=== PATIENT | male | born 1995 | race Caucasian/White ===

== ENCOUNTER 2017-06-02 01:19 | Emergency (ER) | payer OTHER ==
[~2017-06-02] VITALS: Ht 177.8 cm; Wt 79.9 kg
[2017-06-02 01:30] VITALS: TEMP 36.5; Ht 177.8 cm; Wt 79.9 kg
[2017-06-02] MEDS ORDERED: LORAZEPAM 1 MG TAB SL STA ×2 (01:50→01:53)
--- NOTE | 2017-06-02 01:55 | EMERGENCY ROOM VISIT NOTE ---
History Report prepared by Raphael: Claude Verma Under the Supervision of: Dr. Scottie Carrillo M.D. First contact with patient: 01:39 Chief Complaint: OTHER COMPLAINT Stated Complaint: SHAKING,FEELING OUT OF CONTROL,HYPERVENTILATING History of Present Illness The patient is a 22 year old male who presents to the Emergency Room with complaints of constant shaking and hyperventilating beginning a few hours ago. The patient states he takes Wellbutrin and Zoloft daily for an antidepressant. He reports this evening he smoked a joint of marijuana and felt loopy and shaky. The patient notes he cannot rest without shaking and hyperventilating. He states he has a long history of heavy marijuana use. He states he has been clean for the past 8 months or so. The patient reports marijuana has made him feel this way before, but he ignored it. He notes he felt fine when he first started his long history, but then it switched how it affected him. The patient states he ate dinner, but did not eat much food throughout the day either. He denies loss of consciousness, alcohol consumption, abdominal pain, and neck pain. The patient did not become incontinent of his stool or urine. He also did not show signs of biting his tongue. Source of History: patient Onset: few hours ago Position: other (global) Quality: other (shaking and hyperventilating) Timing: constant Modifying Factors (Worsening): rest Associated Symptoms: No LOC, No neck pain, No abdominal pain Note: Associated symptoms: jittery Denies: alcohol consumption Review of Systems All systems have been listed, reviewed, and are negative other than those previously mentioned. Please see Additional Medical History Sheet. Past Medical & Surgical Medical Problems: (1) Skin problem Family History Cancer Heart disease Social History Smoking Status: Current Some Day Smoker Smokeless Tobacco Use: No Alcohol Use: none Drug Use: marijuana Marital Status: single Housing Status: lives with roommate Occupation Status: [employer] Current/Historical Medications Scheduled Bupropion (Wellbutrin-Xl), 300 MG PO DAILY Sertraline (Zoloft), 150 MG PO HS Allergies Coded Allergies: No Known Allergies (Unverified , 06/02/17) Physical Exam Vital Signs Date Time Temp Pulse Resp B/P (MAP) Pulse Ox O2 Delivery O2 Flow Rate FiO2 06/02/17 01:30 36.5 85 18 152/84 100 Room Air Physical Exam GENERAL: Patient awake, alert, oriented x 3. Extremely anxious and jittery. Patient follows commands. Patient does not appear toxic. Patient is adequately hydrated and well-nourished. SKIN: No erythema, pallor, cyanosis or rash HEENT: Normal head, pupils equal, reactive to light and accommodation. Ears normal. Oral cavity and posterior pharynx appear normal. Neck: Without adenopathy, no neck vein distention. Tongue shows no sign of trauma or bite. LUNGS: Clear to auscultation. No wheezes, no rales, no rhonchi. HEART: No murmurs. No gallops. No rubs ABDOMEN: Soft and non-tender. EXTREMITIES: No signs of trauma or infection. NEUROLOGIC: Cranial nerves II-XII within normal limits. No gross motor sensory function deficits. Medical Decision & Procedures Medications Administered Medications (Trade) Dose Ordered Sig/Diana Route Start Time Stop Time Status Last Admin Dose Admin Lorazepam (Ativan Tab) 1 mg NOW STAT SL 06/02/17 01:50 06/02/17 01:51 DC 06/02/17 01:54 1 MG ED Course 0139: Past medical records reviewed. The patient was evaluated in room B07. A complete history and physical examination was performed. I discussed today's physical exam findings with him. He verbalized agreement of the treatment plan. The patient will be discharged home once he receives his medication. 0150: Ordered Ativan Tab 1mg SL 0153: Ordered Ativan Tab 1mg SL Medical Decision I considered multiple diagnoses including: seizure, hyperventilation, panic attack, anxiety secondary to combination of medication. The patient has a history of anxiety but became much more anxious tonight after smoking marijuana. The patient is already on psychiatric medications. The patient is concerned about a seizure but his history is not consistent with that problem. The patient did not bite his tongue. He had no fecal or urinary incontinence. He remembers the event. Examination is unremarkable other than his significant anxiety. The patient was given Ativan here and one dose to take tonight if he needs it. I do not believe the patient requires additional labs or imaging. The patient was encouraged to avoid marijuana in the future. Impression Primary Impression: Panic attack Scribe Attestation The scribe's documentation has been prepared under my direction and personally reviewed by me in its entirety. I confirm that the note above accurately reflects all work, treatment, procedures, and medical decision making performed by me. Departure Information Dispostion Home / Self-Care Referrals No Doctor, Assigned (PCP) Forms HOME CARE DOCUMENTATION FORM, IMPORTANT VISIT INFORMATION, WORK / SCHOOL INSTRUCTIONS Patient Instructions My [facility] Additional Instructions Continue all of your current medications as prescribed. Do not use marijuana. You may take an additional dose of Ativan if you still feel anxious.
[2017-06-02] MEDS ORDERED: BUPRTAB51 PO (01:59)
[2017-06-02] MEDS ORDERED: SERT-234 PO (02:00)
[2017-06-02] MEDS ORDERED: EMPTY 8 DRAM VIAL ONE (02:10)
[2017-06-02 02:16] VITALS: BP 130/69; PULSE 92; O2SAT 97
== END 2017-06-02 02:18 | disposition home or self-care (01) ==
LOC: C.EDB 01:21
DX: F41.0 Panic disorder [episodic paroxysmal anxiety] (principal); F17.200 Nicotine dependence, unspecified, uncomplicated